=== PATIENT | male | born 1990 | race Native Hawaiian/Other Pacific Islander ===

== ENCOUNTER 2019-08-09 11:57 | Emergency (ER) | payer OTHER ==
[~2019-08-09] VITALS: Ht 182.9 cm; Wt 90.9 kg
[2019-08-09] MEDS ORDERED: ATOR10TA84 PO (12:04)
[2019-08-09] MEDS ORDERED: GABA-1201 PO (12:04)
[2019-08-09] MEDS ORDERED: IBUP-2071 PO (12:04)
[2019-08-09] MEDS ORDERED: TOPI100T37 PO (12:04)
[2019-08-09] MEDS ORDERED: POTA8TAB71 PO (12:04)
[2019-08-09] MEDS ORDERED: OLAN10TA3 PO (12:04)
[2019-08-09] MEDS ORDERED: LOSA25TA71 PO (12:04)
[2019-08-09] MEDS ORDERED: DIVA-112 PO (12:04)
[2019-08-09] MEDS ORDERED: INSULIN REGULAR, HUMAN 100 UNITS/ML SQ ONE (12:45)
[2019-08-09] MEDS ORDERED: IBUPROFEN 800 MG TABLET PO ONE (12:45)
[2019-08-09 13:09] LABS: GLUCOSE,POINT OF CARE 554 MG/DL (70-110)
[2019-08-09 13:11] VITALS: BP 115/68
== END 2019-08-09 13:11 | disposition home or self-care (01) ==
LOC: EMS 11:58
DX: S60.221A Contusion of right hand, initial encounter (principal); S90.112A Contusion of left great toe without damage to nail, initial encounter; E10.65 Type 1 diabetes mellitus with hyperglycemia; F17.210 Nicotine dependence, cigarettes, uncomplicated; E78.00 Pure hypercholesterolemia, unspecified; F12.90 Cannabis use, unspecified, uncomplicated; F41.9 Anxiety disorder, unspecified; Z79.899 Other long term (current) drug therapy; W22.01XA Walked into wall, initial encounter; Y93.89 Activity, other specified; Y92.89 Other specified places as the place of occurrence of the external cause; Y99.8 Other external cause status
CPT/HCPCS: 73130; 73630; 82962; 96372; 99284; J1815